=== PATIENT | female | born 1960 | race Two or more races ===

== ENCOUNTER 2017-10-24 12:36 | Day surgery (SDC) | payer BC | END 2017-10-24 15:15 | disposition home or self-care (01) | LOC: GIL 12:36 | DX: Z12.11 Encounter for screening for malignant neoplasm of colon (principal); K57.90 Diverticulosis of intestine, part unspecified, without perforation or abscess without bleeding; K64.8 Other hemorrhoids; K64.4 Residual hemorrhoidal skin tags; I10 Essential (primary) hypertension; E78.5 Hyperlipidemia, unspecified; E03.9 Hypothyroidism, unspecified; E66.01 Morbid (severe) obesity due to excess calories; Z68.41 Body mass index [BMI] 40.0-44.9, adult | CPT/HCPCS: 45378 ==